=== PATIENT | male | born 2000 | race Caucasian/White ===

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

== ENCOUNTER 2018-03-05 22:47 | Emergency (ER) | payer MEDICAID ==
[~2018-03-05] VITALS: Ht 175.3 cm; Wt 79.4 kg
[2018-03-05 23:00] VITALS: BP 135/85
[2018-03-05] MEDS ORDERED: ONDANSETRON ODT 4 MG TAB PO ONE (23:45)
[2018-03-05] MEDS ORDERED: KETOROLAC TROMETH 60MG/2ML VIAL IM ONE (23:45)
[2018-03-05] MEDS ORDERED: methylPREDNISolone SOD SUCC 125 MG/2 ML VL IM ONE (23:45)
== END 2018-03-06 01:02 | disposition home or self-care (01) ==
LOC: ER 22:49
DX: R51 Headache (principal); R11.0 Nausea
CPT/HCPCS: 70450; 96372; 99284; J1885; J2930; Q0162

== ENCOUNTER 2018-03-06 16:34 | Emergency (ER) | payer MEDICAID ==
[~2018-03-06] VITALS: Ht 175.3 cm; Wt 79.4 kg
[2018-03-06 17:16] VITALS: BP 138/77
== END 2018-03-06 18:04 | disposition left against medical advice (07) ==
LOC: ER 16:43
DX: R51 Headache (principal); Z53.21 Procedure and treatment not carried out due to patient leaving prior to being seen by health care provider

== ENCOUNTER 2020-02-07 14:14 | Emergency (ER) | payer BC, MEDICAID ==
[~2020-02-07] VITALS: Ht 175.3 cm; Wt 79.4 kg
[2020-02-07 14:38] VITALS: BP 132/78
[2020-02-07] MEDS ORDERED: cefTRIAXone SOD 1,000 MG VL IM ONE (17:30)
[2020-02-07] MEDS ORDERED: DOXYCYCLINE 100 MG TAB/CAP PO ONE (17:30)
[2020-02-07 18:30] LABS: Basophils # (auto) 0 10 ^3/uL (0-0.2); Basophils % (auto) 0.2 % (0.0-2.0); Eosinophils # (auto) 0.1 10 ^3/uL (0-0.8); Eosinophils % (auto) 1.5 % (0.0-7.0); Hematocrit 47.4 % (41.0-53.0); Hemoglobin 16.5 g/dL (13.5-17.5); Lymphocytes # (auto) 1.4 10 ^3/uL (0.4-5.4); Lymphocytes % (auto) 27.2 % (10.0-50.0); Mean Corpuscular Hemoglobin 31.8 pg (28.0-32.0); Mean Corpuscular Hgb Conc. 34.8 g/dL (32.0-36.0); Mean Corpuscular Volume 91.5 fL (80.0-100.0); Monocytes # (auto) 0.5 10 ^3/uL (0-1.3); Monocytes % (auto) 10.1 % (0.0-12.0); Neutrophils # (auto) 3.2 10 ^3/uL (1.6-8.6); Nucleated Red Blood Cells % 0.2 %; Platelet Count (auto) 108 10^3/uL (140-450); Red Blood Cells 5.19 10^6/uL (4.5-5.90); Red Cell Distribution Width 12.6 % (11.8-14.3); White Blood Cell 5.3 10^3/uL (4.4-10.8)
[2020-02-07 18:49] LABS: Albumin 4.3 g/dL (3.4-5.0); Anion Gap 3 (5-15); Blood Urea Nitrogen 10 mg/dL (7-18); Calcium 8.7 mg/dL (8.5-10.1); Carbon Dioxide 29 mmol/L (21-32); Chloride 106 mmol/L (98-107); Potassium 4.2 mmol/L (3.5-5.1); Sodium 138 mmol/L (136-145)
[2020-02-07 18:57] LABS: Alanine Aminotransferase 36 U/L (16-61); Alkaline Phosphatase 84 U/L (45-117); Aspartate Aminotransferase 22 U/L (15-37); BUN/Creatinine Ratio 10.4; Bilirubin, Total 0.8 mg/dL (0.2-1.0); GFR African American 127 mL/min; GFR Non-African American 105 mL/min; Glucose 89 mg/dL (74-106); Total Protein 7.7 g/dL (6.4-8.2)
== END 2020-02-07 20:13 | disposition left against medical advice (07) ==
LOC: ER 14:14
DX: U07.1 COVID-19 (principal); F41.9 Anxiety disorder, unspecified
CPT/HCPCS: 36415; 71045; 80053; 83880; 84443; 84484; 85025; 93005; 99285; J7030